=== PATIENT | female | born 1945 | race Caucasian/White ===

== ENCOUNTER 2021-10-22 04:16 | Inpatient (IN) ==
[2021-10-22 05:10] LABS: Hematocrit 20 % (35-47); Hemoglobin 6.9 g/dL (12.0-16.0); Mean Corpuscular HGB Conc 35 g/dL (31-36); Mean Corpuscular Hemoglobin 39 pg (27-31); Mean Corpuscular Volume 112 fL (80-97); Red Blood Count 1.78 10^6 /uL (3.70-4.87); Red Cell Distribution Width 17 % (10-15); White Blood Count 6.8 10^3/uL (3.5-10.8)
[2021-10-22 05:14] LABS: ALT 10 U/L (7-52); AST 18 U/L (13-39); Albumin 3.5 g/dL (3.2-5.2); Albumin/Globulin Ratio 1.5 (1-3); Alkaline Phosphatase 55 U/L (35-149); Anion Gap 9 mmol/L (2-11); Blood Urea Nitrogen 17 mg/dL (6-24); CO2 Carbon Dioxide 24 mmol/L (22-32); Calcium 8.8 mg/dL (8.6-10.3); Chloride 98 mmol/L (101-111); Globulin 2.3 g/dL (2-4); Glucose 160 mg/dL (70-100); Potassium 3.5 mmol/L (3.5-5.0); Sodium 131 mmol/L (135-145); Total Protein 5.8 g/dL (6.4-8.9)
[2021-10-22 05:20] LABS: Troponin I 1.23 ng/mL (<0.03)
[2021-10-22 05:37] LABS: ABS Lymphocytes 1.1 10^3/ul (1.0-4.8); ABS Monocytes 0.6 10^3/ul (0-0.8); Eosinophil % 0.2 %; Lymphocyte % 16.6 %; Mean Platelet Volume 8.9 fL (7.4-10.4); Platelet Count 63 10^3/uL (150-450)
[2021-10-22] MEDS ORDERED: Iohexol 350 (CONTRAST) 500 ML MDV IV ONE (05:47)
[2021-10-22 05:51] LABS: INR 1.14 (0.86-1.15)
[2021-10-22 05:52] LABS: Activated Partial Thrombo Time 23.7 seconds (26.0-38.0)
[2021-10-22] MEDS ORDERED: Ondansetron 4 mg VIAL 2 MG/ML 2 ml VIAL IV PRN (06:40)
[2021-10-22] MEDS ORDERED: cefTRIAXone 1 gm/50 mL NS BAG 1 GM/50 ML BAG IVPB SCH (06:41)
[2021-10-22] MEDS ORDERED: Azithromycin 500 mg/250 ml NS 500 MG/250 ML BAG IVPB SCH (07:00)
[2021-10-22 08:35] LABS: Troponin I 2.86 ng/mL (<0.03)
[2021-10-22 09:33] LABS: Folate 7.48 ng/mL (5.90-24.80)
[2021-10-22 09:34] LABS: Vitamin B12 1250 pg/mL (180-914)
[2021-10-22 09:35] LABS: C Reactive Protein 18.51 mg/L (<8.01)
[2021-10-22 10:01] LABS: Ferritin 464.8 ng/mL (11-307)
[2021-10-22] MEDS: Cefepime 2 GM in Dextrose 2 GM/50 ML BAG IV SCH ×2 (10:16→23:06)
[2021-10-22 10:35] LABS: Cholesterol 161 mg/dL; HDL Cholesterol 58.3 mg/dL; LDL Cholesterol 88 mg/dL; Triglycerides 73 mg/dL
[2021-10-22 11:14] LABS: Troponin I 5.01 ng/mL (<0.03)
[2021-10-22] MEDS: DOXYcycline 100 MG in NS 0.9% 250 ml 250 ML IVPB SCH ×2 (11:36→13:19)
[2021-10-22] MEDS ORDERED: Furosemide 40 mg/4 ml IV VIAL IV ONE ×2 (11:57→15:45)
[2021-10-22 13:35] LABS: ABS Monocytes 0.8 10^3/ul (0-0.8); ABS Neutrophils 7.8 10^3/ul (1.5-7.7); Eosinophil % 0.2 %; Hematocrit 24 % (35-47); Hemoglobin 8.4 g/dL (12.0-16.0); Lymphocyte % 10.6 %; Mean Corpuscular HGB Conc 35 g/dL (31-36); Mean Corpuscular Hemoglobin 36 pg (27-31); Mean Corpuscular Volume 104 fL (80-97); Mean Platelet Volume 8.8 fL (7.4-10.4); Platelet Count 57 10^3/uL (150-450); Red Blood Count 2.34 10^6 /uL (3.70-4.87); Red Cell Distribution Width 22 % (10-15); White Blood Count 9.7 10^3/uL (3.5-10.8)
[2021-10-22 15:38] LABS: Troponin I 7.99 ng/mL (<0.03)
[2021-10-22 16:54] LABS: LDH 182 U/L (140-271)
[2021-10-22] MEDS ORDERED: Enoxaparin 40 MG/0.4 ML SYR SUBCUT SCH (17:00)
[2021-10-22] MEDS ORDERED: Aspirin EC 81 mg TAB.EC (enteric coated) PO SCH (17:00)
[2021-10-22 18:33] LABS: ABS Lymphocytes 1.4 10^3/ul (1.0-4.8); ABS Monocytes 0.9 10^3/ul (0-0.8); ABS Neutrophils 8.1 10^3/ul (1.5-7.7); Eosinophil % 0.2 %; Hematocrit 22 % (35-47); Hemoglobin 7.5 g/dL (12.0-16.0); Lymphocyte % 13.1 %; Mean Corpuscular HGB Conc 35 g/dL (31-36); Mean Corpuscular Hemoglobin 36 pg (27-31); Mean Corpuscular Volume 103 fL (80-97); Mean Platelet Volume 8.6 fL (7.4-10.4); Platelet Count 51 10^3/uL (150-450); Red Blood Count 2.08 10^6 /uL (3.70-4.87); Red Cell Distribution Width 22 % (10-15); White Blood Count 10.4 10^3/uL (3.5-10.8)
[2021-10-22 18:53] LABS: Troponin I 7.38 ng/mL (<0.03)
[2021-10-23] MEDS: DOXYcycline 100 MG in NS 0.9% 250 ml 250 ML IVPB SCH ×3 (00:16→23:21)
[2021-10-23 04:42] LABS: ABS Lymphocytes 1.6 10^3/ul (1.0-4.8); ABS Monocytes 0.9 10^3/ul (0-0.8); ABS Neutrophils 5.1 10^3/ul (1.5-7.7); Eosinophil % 0.2 %; Hematocrit 26 % (35-47); Lymphocyte % 21.4 %; Mean Corpuscular HGB Conc 35 g/dL (31-36); Mean Corpuscular Hemoglobin 36 pg (27-31); Mean Corpuscular Volume 102 fL (80-97); Mean Platelet Volume 8.4 fL (7.4-10.4); Nucleated Red Blood Cells % 0.1; Platelet Count 46 10^3/uL (150-450); Red Blood Count 2.52 10^6 /uL (3.70-4.87); Red Cell Distribution Width 19 % (10-15); White Blood Count 7.6 10^3/uL (3.5-10.8)
[2021-10-23 04:57] LABS: Calcium 8.3 mg/dL (8.6-10.3)
[2021-10-23] MEDS ORDERED: Magnesium Sulf 4 GM/100 ML IV 4,000 MG/100 ML BAG IVPB ONE (08:00)
[2021-10-23] MEDS ORDERED: KCL 20 MEQ/100 ML IVPREMIX 20 MEQ/100 ML BAG IV SCH (08:00)
[2021-10-23] MEDS: KCL 10 MEQ/50 ML IV SCH ×4 (09:29→14:31)
[2021-10-23] MEDS: Potassium Chlor 20 meq TAB.ER PO SCH ×2 (09:47→13:31)
[2021-10-23] MEDS ORDERED: Perflutren Lipid Microsphere 3 ML VIAL ONE (11:51)
[2021-10-23] MEDS: Cefepime 2 GM in Dextrose 2 GM/50 ML BAG IV SCH ×2 (12:06→22:12)
[2021-10-23] MEDS: Aspirin EC 81 mg TAB.EC (enteric coated) PO SCH (14:50)
[2021-10-23] MEDS ORDERED: Vancomycin 1,000 MG in NS 0.9% 250 ml 250 ML IVPB ONE (14:50)
[2021-10-23] MEDS: Furosemide 40 mg/4 ml IV VIAL IV SCH (14:57)
[2021-10-23] MEDS: Enoxaparin 40 MG/0.4 ML SYR SUBCUT SCH (15:00)
[2021-10-23] MEDS ORDERED: Vancomycin per Pharmacy 1 EA NOTE FOLLOW UP SCH (15:00)
[2021-10-23 15:08] LABS: ABS Lymphocytes 0.9 10^3/ul (1.0-4.8); ABS Monocytes 1.2 10^3/ul (0-0.8); ABS Neutrophils 11.7 10^3/ul (1.5-7.7); Hematocrit 29 % (35-47); Hemoglobin 9.8 g/dL (12.0-16.0); Lymphocyte % 6.5 %; Mean Corpuscular HGB Conc 34 g/dL (31-36); Mean Corpuscular Hemoglobin 35 pg (27-31); Mean Corpuscular Volume 103 fL (80-97); Mean Platelet Volume 8.8 fL (7.4-10.4); Platelet Count 52 10^3/uL (150-450); Red Blood Count 2.77 10^6 /uL (3.70-4.87); Red Cell Distribution Width 19 % (10-15); White Blood Count 13.9 10^3/uL (3.5-10.8)
[2021-10-23 15:10] LABS: Albumin 3.4 g/dL (3.2-5.2); Calcium 8.6 mg/dL (8.6-10.3); Direct Bilirubin 0.2 mg/dL (0.03-0.18); Indirect Bilirubin 0.7 mg/dL (0.3-1.0); Magnesium 2.6 mg/dL (1.9-2.7); Potassium 4.6 mmol/L (3.5-5.0); Total Bilirubin 0.9 mg/dL (0.2-1.0)
[2021-10-23 15:16] LABS: Albumin/Globulin Ratio 1.4 (1-3); Globulin 2.5 g/dL (2-4); Total Protein 5.9 g/dL (6.4-8.9); eGFR CKD-EPI 91.7 (>60)
[2021-10-23] MEDS ORDERED: Iohexol 350 (CONTRAST) 500 ML MDV IV ONE (15:36)
[2021-10-23 16:00] LABS: PCO2 Arterial 34 mmHg (35-45); PO2 Arterial 81 mmHg (80-100)
[2021-10-23] MEDS: methylPREDNISolone SOD 40 mg/ml 1 ml VIAL IV SCH ×2 (17:34→23:21)
[2021-10-23] MEDS ORDERED: Furosemide 40 mg/4 ml IV VIAL IV ONE ×2 (18:30→21:00)
[2021-10-24 06:50] LABS: ABS Lymphocytes 0.9 10^3/ul (1.0-4.8); ABS Monocytes 0.5 10^3/ul (0-0.8); ABS Neutrophils 10.5 10^3/ul (1.5-7.7); Hematocrit 25 % (35-47); Hemoglobin 8.6 g/dL (12.0-16.0); Lymphocyte % 7.2 %; Mean Corpuscular HGB Conc 34 g/dL (31-36); Mean Corpuscular Hemoglobin 35 pg (27-31); Mean Corpuscular Volume 104 fL (80-97); Mean Platelet Volume 8.4 fL (7.4-10.4); Platelet Count 48 10^3/uL (150-450); Red Blood Count 2.44 10^6 /uL (3.70-4.87); Red Cell Distribution Width 19 % (10-15); White Blood Count 11.9 10^3/uL (3.5-10.8)
[2021-10-24 06:56] LABS: C Reactive Protein 79.59 mg/L (<8.01); Calcium 8.7 mg/dL (8.6-10.3); Magnesium 1.8 mg/dL (1.9-2.7); Potassium 4.6 mmol/L (3.5-5.0); eGFR CKD-EPI 80.9 (>60)
[2021-10-24] MEDS: Cefepime 2 GM in Dextrose 2 GM/50 ML BAG IV SCH ×2 (09:56→20:45)
[2021-10-24] MEDS: Furosemide 40 mg/4 ml IV VIAL IV SCH (09:57)
[2021-10-24] MEDS: methylPREDNISolone SOD 40 mg/ml 1 ml VIAL IV SCH ×2 (09:57→15:25)
[2021-10-24] MEDS: DOXYcycline 100 MG in NS 0.9% 250 ml 250 ML IVPB SCH (11:28)
[2021-10-24 13:07] LABS: % Iron Saturation 36 % (14 - 50); Total Iron Binding Capacity 229 mcg/dL (250 - 400)
[2021-10-24] MEDS: Aspirin EC 81 mg TAB.EC (enteric coated) PO SCH (14:27)
[2021-10-24] MEDS: Enoxaparin 40 MG/0.4 ML SYR SUBCUT SCH (15:25)
[2021-10-25] MEDS: DOXYcycline 100 MG in NS 0.9% 250 ml 250 ML IVPB SCH ×2 (00:24→11:20)
[2021-10-25] MEDS: methylPREDNISolone SOD 40 mg/ml 1 ml VIAL IV SCH ×4 (03:34→17:57)
[2021-10-25 06:41] LABS: ABS Monocytes 0.8 10^3/ul (0-0.8); ABS Neutrophils 16.1 10^3/ul (1.5-7.7); Hematocrit 25 % (35-47); Hemoglobin 8.5 g/dL (12.0-16.0); Lymphocyte % 5.6 %; Mean Corpuscular HGB Conc 34 g/dL (31-36); Mean Corpuscular Hemoglobin 36 pg (27-31); Mean Corpuscular Volume 103 fL (80-97); Platelet Count 60 10^3/uL (150-450); Red Blood Count 2.39 10^6 /uL (3.70-4.87); Red Cell Distribution Width 19 % (10-15)
[2021-10-25 07:13] LABS: Calcium 8.9 mg/dL (8.6-10.3); eGFR CKD-EPI 77.3 (>60)
[2021-10-25] MEDS: Furosemide 40 mg/4 ml IV VIAL IV SCH (07:58)
[2021-10-25] MEDS: Cefepime 2 GM in Dextrose 2 GM/50 ML BAG IV SCH ×2 (10:07→23:13)
[2021-10-25] MEDS ORDERED: Furosemide 40 mg/4 ml IV VIAL IV ONE (16:00)
[2021-10-25] MEDS: Aspirin EC 81 mg TAB.EC (enteric coated) PO SCH (16:07)
[2021-10-25] MEDS: Enoxaparin 40 MG/0.4 ML SYR SUBCUT SCH (17:26)
[2021-10-26] MEDS: DOXYcycline 100 MG in NS 0.9% 250 ml 250 ML IVPB SCH ×3 (00:06→23:05)
[2021-10-26] MEDS: methylPREDNISolone SOD 40 mg/ml 1 ml VIAL IV SCH ×3 (00:06→20:37)
[2021-10-26 05:56] LABS: ABS Lymphocytes 0.9 10^3/ul (1.0-4.8); ABS Monocytes 0.6 10^3/ul (0-0.8); ABS Neutrophils 13.9 10^3/ul (1.5-7.7); Hematocrit 22 % (35-47); Hemoglobin 7.4 g/dL (12.0-16.0); Lymphocyte % 5.8 %; Mean Corpuscular HGB Conc 34 g/dL (31-36); Mean Corpuscular Hemoglobin 35 pg (27-31); Mean Corpuscular Volume 106 fL (80-97); Mean Platelet Volume 9.6 fL (7.4-10.4); Platelet Count 85 10^3/uL (150-450); Red Blood Count 2.09 10^6 /uL (3.70-4.87); Red Cell Distribution Width 19 % (10-15); White Blood Count 15.4 10^3/uL (3.5-10.8)
[2021-10-26 07:50] LABS: Calcium 8.8 mg/dL (8.6-10.3); Potassium 3.5 mmol/L (3.5-5.0); eGFR CKD-EPI 73.9 (>60)
[2021-10-26] MEDS: Furosemide 40 mg/4 ml IV VIAL IV SCH (08:05)
[2021-10-26] MEDS: Cefepime 2 GM in Dextrose 2 GM/50 ML BAG IV SCH ×2 (10:08→22:03)
[2021-10-26] MEDS ORDERED: Saline NASAL SPRAY 0.65% BTL BOTH NARES PRN (11:12)
[2021-10-26] MEDS: Enoxaparin 40 MG/0.4 ML SYR SUBCUT SCH (16:16)
[2021-10-26] MEDS: Aspirin EC 81 mg TAB.EC (enteric coated) PO SCH (16:16)
[2021-10-26 16:51] LABS: ABS Lymphocytes 1.3 10^3/ul (1.0-4.8); ABS Monocytes 1.4 10^3/ul (0-0.8); ABS Neutrophils 15.1 10^3/ul (1.5-7.7); Hematocrit 30 % (35-47); Hemoglobin 10.3 g/dL (12.0-16.0); Lymphocyte % 7.4 %; Mean Corpuscular HGB Conc 34 g/dL (31-36); Mean Corpuscular Hemoglobin 34 pg (27-31); Mean Corpuscular Volume 100 fL (80-97); Mean Platelet Volume 8.7 fL (7.4-10.4); Platelet Count 96 10^3/uL (150-450); Red Blood Count 3.02 10^6 /uL (3.70-4.87); Red Cell Distribution Width 20 % (10-15); White Blood Count 17.9 10^3/uL (3.5-10.8)
[2021-10-26] MEDS ORDERED: Furosemide 40 mg/4 ml IV VIAL IV SLOW PU ONE (17:05)
[2021-10-27 05:49] LABS: ABS Lymphocytes 1.2 10^3/ul (1.0-4.8); ABS Monocytes 0.8 10^3/ul (0-0.8); ABS Neutrophils 9.6 10^3/ul (1.5-7.7); Hematocrit 27 % (35-47); Hemoglobin 9.3 g/dL (12.0-16.0); Lymphocyte % 10.1 %; Mean Corpuscular HGB Conc 35 g/dL (31-36); Mean Corpuscular Hemoglobin 35 pg (27-31); Mean Corpuscular Volume 100 fL (80-97); Mean Platelet Volume 8.2 fL (7.4-10.4); Platelet Count 95 10^3/uL (150-450); Red Blood Count 2.68 10^6 /uL (3.70-4.87); Red Cell Distribution Width 19 % (10-15); White Blood Count 11.6 10^3/uL (3.5-10.8)
[2021-10-27 06:00] LABS: Albumin 3.1 g/dL (3.2-5.2); Albumin/Globulin Ratio 1.2 (1-3); Calcium 8.4 mg/dL (8.6-10.3); Globulin 2.5 g/dL (2-4); Potassium 3.2 mmol/L (3.5-5.0); Total Bilirubin 0.7 mg/dL (0.2-1.0); Total Protein 5.6 g/dL (6.4-8.9)
[2021-10-27] MEDS ORDERED: Magnesium Sulf 4 GM/100 ML IV 4,000 MG/100 ML BAG IVPB ONE (06:33)
[2021-10-27] MEDS ORDERED: Potassium Chloride LIQUID 20 MEQ/15 ML LIQUID PO ONE (06:33)
[2021-10-27] MEDS: methylPREDNISolone SOD 40 mg/ml 1 ml VIAL IV SCH (08:33)
[2021-10-27] MEDS: Furosemide 40 mg/4 ml IV VIAL IV SCH (08:33)
[2021-10-27] MEDS: Cefepime 2 GM in Dextrose 2 GM/50 ML BAG IV SCH (11:52)
[2021-10-27] MEDS: DOXYcycline 100 MG in NS 0.9% 250 ml 250 ML IVPB SCH ×2 (12:19→22:41)
[2021-10-27] MEDS: Aspirin EC 81 mg TAB.EC (enteric coated) PO SCH (16:12)
[2021-10-27] MEDS: Enoxaparin 40 MG/0.4 ML SYR SUBCUT SCH (16:12)
[2021-10-28 05:52] LABS: ABS Lymphocytes 1.7 10^3/ul (1.0-4.8); ABS Monocytes 1.1 10^3/ul (0-0.8); Eosinophil % 0.1 %; Hematocrit 28 % (35-47); Hemoglobin 9.9 g/dL (12.0-16.0); Lymphocyte % 17.5 %; Mean Corpuscular HGB Conc 35 g/dL (31-36); Mean Corpuscular Hemoglobin 36 pg (27-31); Mean Corpuscular Volume 101 fL (80-97); Mean Platelet Volume 8.2 fL (7.4-10.4); Platelet Count 133 10^3/uL (150-450); Red Blood Count 2.79 10^6 /uL (3.70-4.87); Red Cell Distribution Width 19 % (10-15); White Blood Count 9.9 10^3/uL (3.5-10.8)
[2021-10-28 06:12] LABS: Albumin/Globulin Ratio 1.3 (1-3); Calcium 8.6 mg/dL (8.6-10.3); Globulin 2.3 g/dL (2-4); Magnesium 1.8 mg/dL (1.9-2.7); Potassium 3.4 mmol/L (3.5-5.0); Total Bilirubin 0.6 mg/dL (0.2-1.0); Total Protein 5.3 g/dL (6.4-8.9); eGFR CKD-EPI 87.7 (>60)
[2021-10-28] MEDS ORDERED: Potassium Chloride LIQUID 20 MEQ/15 ML LIQUID PO ONE (06:27)
[2021-10-28] MEDS ORDERED: Magnesium Sulfate 2 gm BAG 2 GM/50 ML BAG IVPB ONE (06:28)
[2021-10-28 07:33] VITALS: BP 124/49
== END 2021-10-28 11:00 | disposition home or self-care (01) | DRG 193 ==
LOC: ED 04:16 → EDHOLD 06:27 → SUATTDRO 06:27 → MED 20:58
PROVIDERS: ADMIT Internal Medicine; ATTEND Internal Medicine

== ENCOUNTER 2022-03-17 07:23 | Inpatient (IN) ==
[2022-03-17] MEDS ORDERED: Ondansetron 4 mg VIAL 2 MG/ML 2 ml VIAL IV ONE (08:03)
[2022-03-17] MEDS ORDERED: Lactated Ringers 1000 ml BAG 1,000 ML IV ONE (08:09)
[2022-03-17 08:42] LABS: ABS Lymphocytes 0.7 10^3/ul (1.0-4.8); ABS Monocytes 0.4 10^3/ul (0-0.8); ABS Neutrophils 11.2 10^3/ul (1.5-7.7); Hematocrit 36 % (35-47); Hemoglobin 11.7 g/dL (12.0-16.0); Lymphocyte % 5.3 %; Mean Corpuscular HGB Conc 33 g/dL (31-36); Mean Corpuscular Hemoglobin 33 pg (27-31); Mean Corpuscular Volume 98 fL (80-97); Platelet Count 145 10^3/uL (150-450); Red Blood Count 3.61 10^6 /uL (3.70-4.87); Red Cell Distribution Width 16 % (10-15); White Blood Count 12.3 10^3/uL (3.5-10.8)
[2022-03-17 09:00] LABS: ALT 26 U/L (7-52); AST 24 U/L (13-39); Albumin/Globulin Ratio 1.3 (1-3); Alkaline Phosphatase 64 U/L (35-149); Anion Gap 11 mmol/L (2-11); Blood Urea Nitrogen 23 mg/dL (6-24); C Reactive Protein 236.75 mg/L (<8.01); CO2 Carbon Dioxide 27 mmol/L (22-32); Calcium 9.6 mg/dL (8.6-10.3); Chloride 96 mmol/L (101-111); Globulin 3.1 g/dL (2-4); Glucose 81 mg/dL (70-100); Lipase < 10 U/L (11.0-82.0); Potassium 3.9 mmol/L (3.5-5.0); Sodium 134 mmol/L (135-145); Total Protein 7.1 g/dL (6.4-8.9); eGFR CKD-EPI 62.1 (>60)
[2022-03-17] MEDS ORDERED: Iohexol 300 (CONTRAST) 10 ML SDV IV ONE (10:12)
[2022-03-17] MEDS ORDERED: Piperacillin/Tazobac ADVAN 3.375 GM in NS 0.9% 100 ml BAG 100 ML IV ONE (11:21)
[2022-03-17 12:36] LABS: Urine Appearance Cloudy; Urine Bilirubin Negative (Negative); Urine Blood Negative (Negative); Urine Color Yellow; Urine Glucose Negative (Negative); Urine Ketones 1+ (Negative); Urine Nitrite Negative (Negative); Urine Protein 1+(30 mg/dL) (Negative); Urine Specific Gravity 1.025 (1.002-1.030); Urine Urobilinogen Negative (Negative)
[2022-03-17 12:41] LABS: Urine Bacteria Absent (Absent); Urine Red Blood Cell 1+(3-5/hpf) (Absent); Urine Squamous Epithelial Cell Present (Absent); Urine White Blood Cell 1+(6-10/hpf) (Absent)
[2022-03-17] MEDS ORDERED: Ondansetron 4 mg VIAL 2 MG/ML 2 ml VIAL IV PRN ×2 (12:42→19:15)
[2022-03-17] MEDS ORDERED: HYDROmorphone 0.5 MG/0.5 ML SYRINGE IV SLOW PU PRN ×2 (13:11→17:36)
[2022-03-17] MEDS ORDERED: Piperacillin/Tazobactam VIAL 3.375 GM in NS 0.9% 100 ml BAG 100 ML IVPB SCH (16:00)
[2022-03-17] MEDS ORDERED: fentaNYL 100 mcg/2 ml 50 MCG/ML VIAL IV PRN (18:02)
[2022-03-17] MEDS ORDERED: DiMENhydriNATE IV 50 mg/ml 1 ml VIAL IV PUSH PRN (18:02)
[2022-03-17] MEDS ORDERED: Naloxone 0.4 mg VIAL 0.4 mg/ml 1 ml VIAL IV PRN (18:02)
[2022-03-17] MEDS: NS 0.9% 1000 ml BAG 1,000 ML IV SCH (20:37)
[2022-03-17] MEDS ORDERED: ZOSYN 3.375 GM x ONE DOSE over 30 miuntes IV (21:00)
[2022-03-17] MEDS: Piperacillin/Tazobac ADVAN 3.375 GM in NS 0.9% 100 ml BAG 100 ML IV SCH (23:39)
[2022-03-18] MEDS ORDERED: Piperacillin/Tazobactam VIAL 3.375 GM in NS 0.9% 100 ml BAG 100 ML IVPB SCH
[2022-03-18] MEDS: Piperacillin/Tazobac ADVAN 3.375 GM in NS 0.9% 100 ml BAG 100 ML IV SCH ×2 (07:58→16:50)
[2022-03-18] MEDS: NS 0.9% 1000 ml BAG 1,000 ML IV SCH (13:29)
[2022-03-18 15:17] LABS: Hematocrit 22 % (35-47); Hemoglobin 7.1 g/dL (12.0-16.0)
[2022-03-18 19:57] LABS: Corrected Retic Count 0.8 % (0.5-1.5); Hematocrit for Retic CNT 21 % (35-47); Immature Retic Fraction 0.57; RBC Retic Count 2.08 10^6/uL (3.70-4.87)
[2022-03-18 20:20] LABS: Magnesium 1.8 mg/dL (1.9-2.7)
[2022-03-18 20:41] LABS: Ferritin 550.5 ng/mL (11-307)
[2022-03-18 20:45] LABS: Folate 11.38 ng/mL (5.90-24.80)
[2022-03-19] MEDS: Piperacillin/Tazobac ADVAN 3.375 GM in NS 0.9% 100 ml BAG 100 ML IV SCH ×3 (00:20→20:45)
[2022-03-19 04:45] LABS: ABS Lymphocytes 1.4 10^3/ul (1.0-4.8); ABS Monocytes 0.6 10^3/ul (0-0.8); ABS Neutrophils 5.4 10^3/ul (1.5-7.7); Eosinophil % 0.2 %; Hematocrit 27 % (35-47); Hemoglobin 9.2 g/dL (12.0-16.0); Lymphocyte % 18.9 %; Mean Corpuscular HGB Conc 34 g/dL (31-36); Mean Corpuscular Hemoglobin 31 pg (27-31); Mean Corpuscular Volume 93 fL (80-97); Mean Platelet Volume 8.3 fL (7.4-10.4); Platelet Count 95 10^3/uL (150-450); Red Blood Count 2.95 10^6 /uL (3.70-4.87); Red Cell Distribution Width 17 % (10-15); White Blood Count 7.4 10^3/uL (3.5-10.8)
[2022-03-19] MEDS: NS 0.9% 1000 ml BAG 1,000 ML IV SCH (05:21)
[2022-03-19 05:47] LABS: Calcium 8.1 mg/dL (8.6-10.3); Magnesium 1.7 mg/dL (1.9-2.7); Potassium 3.6 mmol/L (3.5-5.0); eGFR CKD-EPI 80.9 (>60)
[2022-03-19] MEDS ORDERED: Magnesium Sulfate IV 1GM/100ML 1 GM/100 ML BAG IV ONE ×2 (06:59→09:10)
[2022-03-19] MEDS ORDERED: Magnesium Sulfate 2 gm BAG 2 GM/50 ML BAG IVPB ONE (08:09)
[2022-03-19] MEDS ORDERED: DiMENhydriNATE IV 50 mg/ml 1 ml VIAL IV PUSH PRN (16:34)
[2022-03-19] MEDS ORDERED: fentaNYL 100 mcg/2 ml 50 MCG/ML VIAL IV PRN (16:34)
[2022-03-19] MEDS ORDERED: Naloxone 0.4 mg VIAL 0.4 mg/ml 1 ml VIAL IV PRN (16:34)
[2022-03-19 16:53] LABS: Hematocrit 32 % (35-47); Hemoglobin 10.6 g/dL (12.0-16.0); Mean Corpuscular HGB Conc 34 g/dL (31-36); Mean Corpuscular Hemoglobin 31 pg (27-31); Mean Corpuscular Volume 92 fL (80-97); Platelet Count 121 10^3/uL (150-450); Red Blood Count 3.41 10^6 /uL (3.70-4.87); Red Cell Distribution Width 18 % (10-15); White Blood Count 8.7 10^3/uL (3.5-10.8)
[2022-03-20] MEDS: Piperacillin/Tazobac ADVAN 3.375 GM in NS 0.9% 100 ml BAG 100 ML IV SCH ×2 (01:58→10:14)
[2022-03-20 06:44] LABS: ABS Lymphocytes 0.9 10^3/ul (1.0-4.8); ABS Monocytes 0.5 10^3/ul (0-0.8); ABS Neutrophils 5.1 10^3/ul (1.5-7.7); Hematocrit 28 % (35-47); Hemoglobin 9.5 g/dL (12.0-16.0); Lymphocyte % 14.3 %; Mean Corpuscular HGB Conc 34 g/dL (31-36); Mean Corpuscular Hemoglobin 31 pg (27-31); Mean Corpuscular Volume 92 fL (80-97); Mean Platelet Volume 8.1 fL (7.4-10.4); Platelet Count 124 10^3/uL (150-450); Red Blood Count 3.03 10^6 /uL (3.70-4.87); Red Cell Distribution Width 17 % (10-15); White Blood Count 6.6 10^3/uL (3.5-10.8)
[2022-03-20 07:03] LABS: Calcium 8.2 mg/dL (8.6-10.3); Magnesium 1.9 mg/dL (1.9-2.7); Potassium 3.6 mmol/L (3.5-5.0); eGFR CKD-EPI 80.9 (>60)
[2022-03-20 10:37] VITALS: BP 134/58
== END 2022-03-20 11:15 | disposition home or self-care (01) | DRG 339 ==
LOC: ED 07:23 → INTOOBSV 20:01 → MEDTELE 20:01
PROVIDERS: ADMIT Surgery; ATTEND Surgery